=== PATIENT | male | born 1970 | race Caucasian/White ===

== ENCOUNTER 2020-01-12 06:06 | Emergency (ER) | payer BC ==
--- NOTE | 2020-01-12 06:55 | ERPHSYRPT ---
- History of Present Illness Source: patient Exam Limitations: no limitations Patient Subjective Stated Complaint: Pt c/o fever, chills, body aches, cough and sob since 01/09/20. Triage Nursing Assessment: pt c/o fever and chills, sob, cough, and body aches since 01/09/20. Pt afebrile here at 98.8, no cough noted at this time. Pt c/o getting "bronchitis" yearly this time of year due to mowing and he mowed approx 30 yards on Sunday. Timing/Duration: day(s) (3) Cough Quality/Degree: moderate, dry cough Possible Cause: occasional episodes Associated Symptoms: cough, headache, other (Sweating) International travel in last 2 weeks: No Hx Tetanus, Diphtheria Vaccination/Date Given: Yes Hx Influenza Vaccination/Date Given: No Hx Pneumococcal Vaccination/Date Given: No Immunizations Up to Date: Yes <TAMMY COBB - Last Filed: 01/12/20 06:48> <CONNIE PAIGE - Last Filed: 01/12/20 08:57> - History of Present Illness Time Seen by Provider: 01/12/20 06:30 Physician History: Is a 49-year-old white male who works at the [employer] and presents with approximately 3-day history of cough headache and sweating. Patient states the coughing has been worsening over the last few days. Patient did state that he mowed several lawns on Sunday. Sometimes he gets a bronchitis after mowing several lawns. Patient is not certain whether or not there are any positive test for the coronavirus at the shelter but he heard there was. He has not knowingly come in contact with an individual that has been diagnosed with a positive coronavirus test. Patient does not smoke. Patient states that he has not been urinating well couple of days despite drinking fluids. He is concerned he may be dehydrated as well. (TAMMY COBB) Allergies/Adverse Reactions: No Known Drug Allergies Allergy (Unverified 01/12/20 06:37) Home Medications: Atorvastatin Calcium 10 mg PO HS 01/12/20 [History] Losartan Potassium 100 mg PO DAILY 01/12/20 [History] Metformin HCl 500 mg [Glucophage 500 MG] 1,000 mg PO DAILY 01/12/20 [ History] Metformin HCl 500 mg [Glucophage 500 MG] 500 mg PO HS 01/12/20 [History] Pioglitazone HCl 15 mg PO DAILY 01/12/20 [History] Sildenafil Citrate [Revatio] 20 mg PO UD 01/12/20 [History] Zolpidem Tartrate 10 mg [Ambien 10 MG] 10 mg PO HS 01/12/20 [History] Travel Risk - International Travel Have you traveled outside of the country in past 3 weeks: No Have you or anyone close to you been diagnosed with or: No Do your reside in a community with a known COVID-19 case?: Yes If Yes where:: [place] - Coronavirus Screening Has patient experienced Coronavirus symptoms: Yes Symptoms experienced: respiratory symptoms (i.e.Cought,shortness of breath), muscle pain, weakness Date of respiratory symptoms onset:: 01/09/20 <TAMMY COBB - Last Filed: 01/12/20 06:48> - Review of Systems Constitutional: Night Sweats Eyes: No Symptoms Ears, Nose, & Throat: No Symptoms Respiratory: Cough, Dyspnea (Mild while coughing) Cardiac: No Symptoms Abdominal/Gastrointestinal: No Symptoms, No Abdominal Pain, No Nausea, No Vomiting, No Diarrhea Genitourinary Symptoms: No Symptoms Musculoskeletal: No Symptoms Skin: No Symptoms Neurological: No Symptoms Psychological: No Symptoms Endocrine: No Symptoms Hematologic/Lymphatic: No Symptoms Immunological/Allergic: No Symptoms All Other Systems: Reviewed and Negative <TAMMY COBB - Last Filed: 01/12/20 06:48> - Past Medical History Pertinent Past Medical History: Yes Neurological History: No Pertinent History ENT History: No Pertinent History Cardiac History: High Cholesterol, Hypertension Respiratory History: No Pertinent History Endocrine Medical History: Diabetes Type II Musculoskeletal History: No Pertinent History GI Medical History: No Pertinent History History: No Pertinent History Psycho-Social History: No Pertinent History Male Reproductive Disorders: No Pertinent History - Past Surgical History Past Surgical History: No Respiratory: No Pertinent History Gastrointestinal: No Pertinent History Genitourinary: No Pertinent History Musculoskeletal: No Pertinent History Male Surgical History: No Pertinent History - Social History Smoking Status: Never smoker Exposure to second hand smoke: No Drug Use: none Patient Lives Alone: No <TAMMY COBBLove - Last Filed: 01/12/20 06:48> - Physical Exam General Appearance: mild distress, alert, anxiety Eye Exam: PERRL/EOMI, eyes nml inspection Ears, Nose, Throat Exam: normal ENT inspection, moist mucous membranes Neck Exam: normal inspection, non-tender, supple, full range of motion Respiratory Exam: normal breath sounds, lungs clear, airway intact, No chest tenderness, No respiratory distress Cardiovascular Exam: tachycardia Gastrointestinal/Abdomen Exam: soft, normal bowel sounds, No tenderness Rectal Exam: not done Back Exam: normal inspection, normal range of motion, No CVA tenderness, No vertebral tenderness Extremity Exam: normal inspection, normal range of motion, No pelvis stable Neurologic Exam: alert, oriented x 3, cooperative, web user experience strategist II-XII nml as tested, normal mood/affect, nml cerebellar function Skin Exam: normal color, warm, dry Lymphatic Exam: No adenopathy SpO2 Interpretation: borderline oxygenation SpO2: 95 O2 Delivery: Room Air <JORDYNTAMMY MekhiLove - Last Filed: 01/12/20 06:48> - Nursing Vital Signs Nursing Vital Signs: Initial Vital Signs Temperature 98.8 F 01/12/20 06:29 Pulse Rate 115 H 01/12/20 06:29 Respiratory Rate 18 01/12/20 06:29 Blood Pressure 144/95 01/12/20 06:29 O2 Sat by Pulse Oximetry 95 01/12/20 06:29 Pain Scale Pain Intensity 0 - Course Nursing assessment & vital signs reviewed: Yes <ANGELES COBBMUNDO MekhiLove - Last Filed: 01/12/20 06:48> Ordered Tests: Active Orders 24 hr Category Date Time Status Account Development Representative STAT Care 01/12/20 06:58 Active EKG-ER Only STAT Care 01/12/20 08:05 Active IV Insertion STAT Care 01/12/20 06:57 Active Isolation, Initiate & Maintain Q4H Care 01/12/20 06:37 Active CHEST 1 VIEW (PORTABLE) Stat Exams 01/12/20 06:58 Completed CBC W DIFF Stat Lab 01/12/20 06:35 Completed CMP Stat Lab 01/12/20 06:35 Completed Ferritin Stat Lab 01/12/20 06:35 Completed LDH-LACTATE DEHYDROGENASE Stat Lab 01/12/20 06:35 Completed Lactic Acid Stat Lab 01/12/20 07:43 Completed Manual Differential NC Stat Lab 01/12/20 06:35 Completed TROPONIN Q3H Lab 01/12/20 08:15 Completed TROPONIN Q3H Lab 01/12/20 11:15 Ordered TROPONIN Q3H Lab 01/12/20 14:15 Ordered TROPONIN Q3H Lab 01/12/20 17:15 Ordered TROPONIN Q3H Lab 01/12/20 20:15 Ordered TROPONIN Q3H Lab 01/12/20 23:15 Ordered Medication Summary Discontinued Medications Generic Name Dose Route Start Last Admin Trade Name Freq PRN Reason Stop Dose Admin Hydrocodone Bitart/Acetaminophen 10 ml 01/12/20 07:02 01/12/20 07:16 Hydrocodone-Acetamin 2.5-108/5 Ml Solution PO 01/12/20 07:03 10 ml STAT STA Administration Hydrocodone Bitart/Acetaminophen Confirm 01/12/20 07:14 Hydrocodone-Acetamin 2.5-108/5 Ml Solution Administered 01/12/20 07:15 Dose 10 ml .ROUTE .STK-MED ONE Sodium Chloride 1,000 mls @ 999 mls/hr 01/12/20 06:57 01/12/20 08:31 Sodium Chloride 0.9% 1000 Ml IV 01/12/20 07:57 Infused .Q1H1M STA Infusion Sodium Chloride Confirm 01/12/20 07:10 Sodium Chloride 0.9% 1000 Ml Administered 01/12/20 07:11 Dose 1,000 mls @ ud .ROUTE .STK-MED ONE Lab/Rad Data: Laboratory Result Diagrams 01/12/20 06:35 01/12/20 06:35 Laboratory Results 01/12/20 01/12/20 01/12/20 Range/Units 08:15 07:43 07:00 WBC (4.0-10.5) K/mm3 RBC (4.1-5.6) M/mm3 Hgb (12.5-18.0) gm/dl Hct (42-50) % MCV (78-100) fl MCH (26-32) pg MCHC (32-36) g/dl RDW (11.5-14.0) % Plt Count (150-450) K/mm3 MPV (7.5-11.0) fl Segmented Neutrophils (36.-66.) % Band Neutrophils (0.0-2.0) % Lymphocytes (Manual) (24-44) % Monocytes (Manual) (0.0-12.0) % Platelet Estimate (NORMAL) RBC Morphology Sodium (137-145) mmol/L Potassium (3.5-5.1) mmol/L Chloride (98-107) mmol/L Carbon Dioxide (22-30) mmol/L Anion Gap (5-15) MEQ/L BUN (9-20) mg/dL Creatinine (0.66-1.25) mg/dL Estimated GFR ML/MIN Glucose (74-106) mg/dL Lactic Acid 1.7 (0.4-2.0) Calcium (8.4-10.2) mg/dL Ferritin (17.9-464) ng/mL Total Bilirubin (0.2-1.3) mg/dL AST (17-59) U/L ALT (0-50) U/L Alkaline Phosphatase (38-126) U/L Lactate Dehydrogenase (120-246) U/L Troponin I < 0.012 (0.000-0.034) ng/mL Serum Total Protein (6.3-8.2) g/dL Albumin (3.5-5.0) g/dL Influenza Type A Ag NEGATIVE (NEGATIVE) Influenza Type B Ag NEGATIVE (NEGATIVE) RSV (PCR) NEGATIVE (Negative) 01/12/20 01/12/20 01/12/20 Range/Units 06:35 06:35 06:35 WBC (4.0-10.5) K/mm3 RBC (4.1-5.6) M/mm3 Hgb (12.5-18.0) gm/dl Hct (42-50) % MCV (78-100) fl MCH (26-32) pg MCHC (32-36) g/dl RDW (11.5-14.0) % Plt Count (150-450) K/mm3 MPV (7.5-11.0) fl Segmented Neutrophils (36.-66.) % Band Neutrophils (0.0-2.0) % Lymphocytes (Manual) (24-44) % Monocytes (Manual) (0.0-12.0) % Platelet Estimate (NORMAL) RBC Morphology Sodium 132 L (137-145) mmol/L Potassium 3.7 (3.5-5.1) mmol/L Chloride 99 (98-107) mmol/L Carbon Dioxide 23 (22-30) mmol/L Anion Gap 13.4 (5-15) MEQ/L BUN 17 (9-20) mg/dL Creatinine 1.34 H (0.66-1.25) mg/dL Estimated GFR 59.7 ML/MIN Glucose 286 H (74-106) mg/dL Lactic Acid (0.4-2.0) Calcium 8.5 (8.4-10.2) mg/dL Ferritin 696 H (17.9-464) ng/mL Total Bilirubin 0.90 (0.2-1.3) mg/dL AST 59 (17-59) U/L ALT 49 (0-50) U/L Alkaline Phosphatase 93 (38-126) U/L Lactate Dehydrogenase 393 H (120-246) U/L Troponin I (0.000-0.034) ng/mL Serum Total Protein 7.0 (6.3-8.2) g/dL Albumin 3.6 (3.5-5.0) g/dL Influenza Type A Ag (NEGATIVE) Influenza Type B Ag (NEGATIVE) RSV (PCR) (Negative) 01/12/20 Range/Units 06:35 WBC 4.0 (4.0-10.5) K/mm3 RBC 5.41 (4.1-5.6) M/mm3 Hgb 16.2 (12.5-18.0) gm/dl Hct 44.7 (42-50) % MCV 82.6 (78-100) fl MCH 29.9 (26-32) pg MCHC 36.2 H (32-36) g/dl RDW 12.6 (11.5-14.0) % Plt Count 97 L (150-450) K/mm3 MPV 9.0 (7.5-11.0) fl Segmented Neutrophils 67 H (36.-66.) % Band Neutrophils 12 H (0.0-2.0) % Lymphocytes (Manual) 10 L (24-44) % Monocytes (Manual) 11 (0.0-12.0) % Platelet Estimate DECREASED (NORMAL) RBC Morphology NORMAL Sodium (137-145) mmol/L Potassium (3.5-5.1) mmol/L Chloride (98-107) mmol/L Carbon Dioxide (22-30) mmol/L Anion Gap (5-15) MEQ/L BUN (9-20) mg/dL Creatinine (0.66-1.25) mg/dL Estimated GFR ML/MIN Glucose (74-106) mg/dL Lactic Acid (0.4-2.0) Calcium (8.4-10.2) mg/dL Ferritin (17.9-464) ng/mL Total Bilirubin (0.2-1.3) mg/dL AST (17-59) U/L ALT (0-50) U/L Alkaline Phosphatase (38-126) U/L Lactate Dehydrogenase (120-246) U/L Troponin I (0.000-0.034) ng/mL Serum Total Protein (6.3-8.2) g/dL Albumin (3.5-5.0) g/dL Influenza Type A Ag (NEGATIVE) Influenza Type B Ag (NEGATIVE) RSV (PCR) (Negative) <TAMMY COBB - Last Filed: 01/12/20 06:48> - Progress Progress: improved Air Movement: good <CONNIE PAIGE - Last Filed: 01/12/20 08:57> - Progress Progress Note: 01/12/20 06:56 I am transferring care to Dr. Paige at the time of shift change. I reviewed the patient's history and condition and pending lab test. He will make the final disposition. (TAMMY COBB) 01/12/20 08:55 - We'll obtain basic labs, fluids, EKG, troponin, chest x-ray - I feel comfortable with one time negative troponin given symptoms have improved and started greater then 6 hours ago. - EKG shows no ST changes - my read. See full read below. - O2 saturations consistently greater than 95%. - CXR shows no pneumonia, pneumothorax - my read - no other obvious lab abnormalities Patent feeling well over. No signs of sinister pathology. At this time, we will discharge patient home. He will need follow up in the next 24-48 hours with PCP. Plan of care was discussed with patient and all questions answered. The patient is agreeable to be discharged home and both verbal and printed discharge instructions were provided.The patient agreed to seek outpatient follow up as discussed. The patient was given strict instructions to return to the emergency department for worsening symptoms or any other emergent concerns. The patient verbalized understanding. (CONNIE PAIGE) <TAMMY COBB - Last Filed: 01/12/20 06:48> - Departure Departure Disposition: Extended Care Facility Critical Care Time: No <CONNIE PAIGE - Last Filed: 01/12/20 08:57> - Departure Clinical Impression: Acute bronchitis Condition: Stable Referrals: LESTER MOHR, PANEL COVERER [Primary Care Provider] - Instructions: Cough, Adult (DC)
[2020-01-12] MEDS ORDERED: Sodium Chloride 0.9% 1000 ML 1,000 ML IV STA (06:57)
[2020-01-12] MEDS ORDERED: HYDROCODONE-ACETAMIN 2.5-108/5 ML SOLUTION PO STA (07:02)
[2020-01-12] MEDS ORDERED: Sodium Chloride 0.9% 1000 ML 1,000 ML ONE (07:10)
[2020-01-12 07:13] LABS: Hematocrit 44.7 % (42-50); Hemoglobin 16.2 gm/dl (12.5-18.0); Mean Cell Volume 82.6 fl (78-100); Mean Corpuscular Hemoglobin 29.9 pg (26-32); Mean Corpuscular Hgb Concent. 36.2 g/dl (32-36); Platelet Count 97 K/mm3 (150-450); Red Blood Count 5.41 M/mm3 (4.1-5.6); Red Cell Distribution Width 12.6 % (11.5-14.0)
[2020-01-12] MEDS ORDERED: HYDROCODONE-ACETAMIN 2.5-108/5 ML SOLUTION ONE (07:14)
[2020-01-12 07:45] LABS: INFLUENZA A NEGATIVE (NEGATIVE); INFLUENZA B NEGATIVE (NEGATIVE); RESPIRATORY SYNCTIAL VIRUS NEGATIVE (Negative)
--- NOTE | 2020-01-12 08:11 | XRAY ---
Indication: Cough. Comparison: None Portable apical lordotic chest demonstrates normal heart and lungs. Bony thorax intact with mild degenerative changes.
[2020-01-12 08:14] LABS: ALBUMIN 3.6 g/dL (3.5-5.0); ANION GAP 13.4 MEQ/L (5-15); BILIRUBIN,TOTAL 0.9 mg/dL (0.2-1.3); Calcium 8.5 mg/dL (8.4-10.2); Creatinine 1 1.34 mg/dL (0.66-1.25); Potassium 3.7 mmol/L (3.5-5.1)
[2020-01-12 08:15] LABS: BAND 12 % (0.0-2.0); Lymphocytes 10 % (24-44); Monocyte 11 % (0.0-12.0); Neutrophils 67 % (36.-66.); Platelet Estimate DECREASED (NORMAL); Total Cells Counted 100
[2020-01-12 08:30] VITALS: BP 127/87
[2020-01-12 09:01] VITALS: PULSE 87; O2SAT 97
== END 2020-01-12 09:06 | disposition home or self-care (01) ==
LOC: ED 06:06
DX: J20.9 Acute bronchitis, unspecified (principal); I10 Essential (primary) hypertension; E11.9 Type 2 diabetes mellitus without complications; Z79.4 Long term (current) use of insulin; E78.00 Pure hypercholesterolemia, unspecified; Z79.899 Other long term (current) drug therapy
CPT/HCPCS: 36000; 36415; 71045; 80053; 82728; 83605; 83615; 84484; 85025; 87631; 93005; 93041; 96360; 99000; 99284; A9270-GY